=== PATIENT | male | born 1945 | race Caucasian/White ===

== ENCOUNTER → 2017-07-25 14:38 | Outpatient (CLI) | payer MEDICARE, OTHER, SELFPAY ==
--- NOTE | 2017-07-25 15:02 | EKG12_ITS ---
Test Reason : PREOP Blood Pressure : / mmHG Vent. Rate : 061 BPM Atrial Rate : 061 BPM P-R Int : 206 ms QRS Dur : 128 ms QT Int : 462 ms P-R-T Axes : 004 -43 036 degrees QTc Int : 465 ms Normal sinus rhythm Left axis deviation Non-specific intra-ventricular conduction block Abnormal ECG Confirmed by IMANI SEAMAN, CRISTOBAL ([id number]), editor house organ SYDNEE CARDONA ([id number] on 07/28/2017 12:48:57 PM Referred By: KALA Confirmed By:CRISTOBAL DIALLO MD
[2017-07-25 15:35] LABS: Hematocrit 46.6 % (40-54); Hemoglobin 15.5 g/dl (13.0-16.5); Mean Corp Hgb Conc 33.3 g/gl (32-36); Mean Corpuscular Hgb 31.5 pg (27.0-32.0); Mean Corpuscular Volume 94.7 fL (80-94); Mean Platelet Vol. 9.9 fl (6.2-12.0); Platelet Count 148 K/mm3 (150-450); RBC Distribution Width CV 13.5 % (11.6-14.6); RBC Distribution Width SD 46.4 fl (35.1-43.9); Red Blood Count 4.92 M/mm3 (4.6-6.2); White Blood Count 7.3 K/mm3 (4.4-11.0)
[2017-07-25 15:47] LABS: Hemoglobin A1c 6.1 % (4.2-6.3)
[2017-07-25 16:01] LABS: Anion Gap 5 (5-15); BUN 14 mg/dL (7-18); BUN/Creat Ratio 16.1 RATIO (10-20); Calcium,Total 8.7 mg/dL (8.5-10.1); Chloride 105 mmol/L (98-107); Creatinine, Serum 0.87 mg/dL (0.70-1.30); EST Glomerular Filtration Rate 92 mL/min (>60); Est Glom Filt Rate - Afr Amer 111 mL/min (>60); Glucose 121 mg/dL (74-106); Potassium 4.3 mmol/L (3.5-5.1); Sodium Level 137 mmol/L (136-145)
[2017-07-25 16:11] LABS: Scan Indicated on CBC? Y/N NO
== END ==
PROVIDERS: Family Provider Orthopaedic Surgery; PCP Orthopaedic Surgery; Visit Provider Orthopaedic Surgery
DX: Z01.818 Encounter for other preprocedural examination (principal); E11.9 Type 2 diabetes mellitus without complications
CPT/HCPCS: 36415; 80048; 83036; 85027; 93005

== ENCOUNTER 2017-10-26 08:56 | Emergency (ER) | payer MEDICARE, OTHER, SELFPAY ==
[2017-10-26 08:58] VITALS: BP 124/70; PULSE 78; RESP 17; TEMP 36.4; O2SAT 94; BMI 33.7
[2017-10-26 09:16] LABS: Bedside Glucose 186 mg/dL (70-110)
[2017-10-26 09:23] LABS: Mucous, Urine 0 SEEN /hpf (<or=2+)
[2017-10-26 09:25] LABS: Color, Urine Red (Yellow); Glucose, Dipstick Normal (Normal); Ketone-Dipstick 50 mg/dl (Negative); Leukocyte Esterase-Dipstick 500 /ul (Negative); Nitrite-Dipstick Negative (Negative); Occult Blood-Urine 250 /ul (Negative); Protein-Dipstick 100 mg/dl (Negative); Specific Gravity, Urine 1.025 (1.002-1.030); Urine Clarity Cloudy (Clear); Urine Urobilinogen Normal (Normal); Urine pH 6.5 (5.0 - 8.0)
[2017-10-26 09:26] LABS: Urine Bilirubin Dipstick 1 mg/dL (Negative)
[2017-10-26 09:39] LABS: Red Blood Cells-Urine > 100 SEEN /hpf (0-5); White Blood Cells >100 SEEN /hpf (0-5)
[2017-10-26 09:40] LABS: Bacteria 1+ /hpf (None Seen); Squamous Epithelial Cells - UA 5-10 SEEN /hpf (0-5)
[2017-10-26 10:07] LABS: Absolute Lymphocyte Count 0.59 X10^3/ul (0.83-4.51); Absolute Neutrophil Count 12.1 X10^3/uL (2.0-7.7); Basophil# 0.01 X10^3/uL; Basophil% 0.1 % (0-1); Eosinophil# 0.01 X10^3/uL; Eosinophils% 0.1 % (0-5); Hematocrit 41.7 % (40-54); Hemoglobin 13.9 g/dl (13.0-16.5); Lymphocyte # 0.59 X10^3/ul (4.0); Lymphocyte % 4.3 % (19-41); Mean Corp Hgb Conc 33.3 g/gl (32-36); Mean Corpuscular Volume 93.1 fL (80-94); Mean Platelet Vol. 9.6 fl (6.2-12.0); Monocyte# 1.01 X10^3/uL; Monocyte% 7.4 % (0-10); Neutrophil # 12.05 X10^3/uL (2.7-7.7); Neutrophil % 87.7 % (47-70); Platelet Count 150 K/mm3 (150-450); RBC Distribution Width CV 13.1 % (11.6-14.6); RBC Distribution Width SD 43.2 fl (35.1-43.9); Red Blood Count 4.48 M/mm3 (4.6-6.2); White Blood Count 13.7 K/mm3 (4.4-11.0)
[2017-10-26 10:14] LABS: Anion Gap 10 (5-15); BUN 17 mg/dL (7-18); BUN/Creat Ratio 21.3 RATIO (10-20); Calcium,Total 8.5 mg/dL (8.5-10.1); Chloride 101 mmol/L (98-107); Differential Indicated SCAN CRITERIA MET; EST Glomerular Filtration Rate 101 mL/min (>60); Est Glom Filt Rate - Afr Amer 123 mL/min (>60); Estimated Creatinine Clearance 92.96 ml/min; Glucose 170 mg/dL (74-106); POSITIVE COUNT NO; POSITIVE DIFFERENTIAL YES; POSITIVE MORPHOLOGY NO; Potassium 4.1 mmol/L (3.5-5.1); Sodium Level 136 mmol/L (136-145)
[2017-10-26] MEDS: Ceftriaxone 1 GM/50 ML BAG IV (10:26)
[2017-10-26 10:28] LABS: Differential Comment SCANNED
[2017-10-26 11:12] VITALS: BP 134/69; PULSE 71; RESP 19; O2SAT 96
[2017-10-26 12:14] VITALS: BP 140/63; PULSE 70; RESP 16; O2SAT 95
--- NOTE | 2017-10-26 17:24 | ED.DCSUM_ITS ---
History of Present Illness Chief Complaint: Complaint Informant: Patient Onset: Yesterday Context: Gradual Onset Timing: Continuous - but w/ urination only Quality: burning w/ urination Location: urethral Current Severity: Moderate Maximum Severity: Moderate Worsened by: urinating Relieved by: nothing Associated Symptoms: mild hematuria w/o clots or retention. fevers/chills/ malaise. Narrative: No abdominal or back pain. No shortness of breath. No presyncope or syncope. No significant history of kidney stones or urine infections before. - Past Medical History (1) Afib Status: Chronic (2) HTN (hypertension) Status: Chronic Past Medical History - Allergies and Home Meds Allergies/Adverse Reactions: Allergies doxycycline [From Vibramycin] Allergy (Verified 10/26/17 08:58) Rash fenofibrate [From Tricor] Allergy (Verified 10/26/17 08:58) Unknown lisinopril Allergy (Verified 10/26/17 08:58) Other COUGH Primary Care Physician: [facility],[place] [Primary Care Provider] - Lives: Spouse/ Significant Other Smoking Status: Never smoker Review of Systems All systems negative except as indicated General: Reports: Chills, Fever, Malaise Gastrointestinal: Denies: Abdominal pain, Nausea, Vomiting Genitourinary: Reports: Dysuria, Hematuria, Frequency Musculoskeletal: Denies: Back pain Physical Exam Vital Signs/Narrative: Vital Signs Temp Pulse Resp BP Pulse Ox 10/26/17 11:12 71 19 H 134/69 H 96 10/26/17 08:58 97.6 F L 78 17 124/70 H 94 General: Well nourished, Well developed Head: Normocephalic, Atraumatic Eyes: Perrl, EOMI ENT: Moist mucous membranes, No rhinorrhea Neck: Supple, Nontender Cardiovascular: Regular rate, Regular rhythm, No murmurs Respiratory: No distress, CTA bilaterally, Chest nontender Abdomen: Soft, Nontender, Nondistended, Normal bowel sounds Back: Nontender, Normal Inspection Extremities: Nontender, No edema Skin: Normal color, No rash Neurological: Alert, Oriented x3, Cranial nerves II-XII grossly intact, Normal Strength, Normal Sensation Psychological: Normal affect Diagnostic/Tx/Re-eval Laboratory Results 10/26/17 10/26/17 10/26/17 Range/Units 09:10 09:11 09:30 WBC 13.7 H (4.4-11.0) K/mm3 RBC 4.48 L (4.6-6.2) M/mm3 Hgb 13.9 (13.0-16.5) g/dl Hct 41.7 (40-54) % MCV 93.1 (80-94) fL MCH 31.0 (27.0-32.0) pg MCHC 33.3 (32-36) g/gl RDW 13.1 (11.6-14.6) % RDW Differential 43.2 (35.1-43.9) fl Plt Count 150 (150-450) K/mm3 MPV 9.6 (6.2-12.0) fl Immature Gran % (Auto) 0.400 (0.0-0.9) % Neut % (Auto) 87.7 H (47-70) % Lymph % (Auto) 4.3 L (19-41) % [place] % (Auto) 7.4 (0-10) % Eos % (Auto) 0.1 (0-5) % Baso % (Auto) 0.1 (0-1) % Absolute Neuts (auto) 12.1 H (2.0-7.7) X10^3/uL Absolute Lymphs (auto) 0.59 L (0.83-4.51) X10^3/ul Total Counted Not Reportable Differential Comment SCANNED Sodium (136-145) mmol/L Potassium (3.5-5.1) mmol/L Chloride (98-107) mmol/L Carbon Dioxide (21.0-32.0) mmol/L Anion Gap (5-15) BUN (7-18) mg/dL Creatinine (0.70-1.30) mg/dL Estim Creat Clear Calc ml/min Est GFR (MDRD) Af Amer (>60) mL/min Est GFR (MDRD) Non-Af (>60) mL/min BUN/Creatinine Ratio (10-20) RATIO Glucose (74-106) mg/dL Calcium (8.5-10.1) mg/dL Urine Color Red (Yellow) Urine Clarity Cloudy (Clear) Urine pH 6.5 (5.0 - 8.0) Ur Specific [place] 1.025 (1.002-1.030) Urine Protein 100 H (Negative) mg/dl Urine Glucose (UA) Normal (Normal) mg/dl Urine Ketones 50 H (Negative) mg/dl Urine Occult Blood 250 H (Negative) /ul Urine Nitrite Negative (Negative) Urine Bilirubin 1 H (Negative) mg/dL Urine Urobilinogen Normal (Normal) mg/dl Ur Leukocyte Esterase 500 H (Negative) /ul Urine RBC > 100 SEEN (0-5) /hpf Urine WBC >100 SEEN (0-5) /hpf Ur Squamous Epith Cells 5-10 SEEN (0-5) /hpf Urine Bacteria 1+ (None Seen) /hpf Urine Mucus 0 SEEN (<or=2+) /hpf POC Glucose 186 H (70-110) mg/dL 10/26/17 Range/Units 09:30 WBC (4.4-11.0) K/mm3 RBC (4.6-6.2) M/mm3 Hgb (13.0-16.5) g/dl Hct (40-54) % MCV (80-94) fL MCH (27.0-32.0) pg MCHC (32-36) g/gl RDW (11.6-14.6) % RDW Differential (35.1-43.9) fl Plt Count (150-450) K/mm3 MPV (6.2-12.0) fl Immature Gran % (Auto) (0.0-0.9) % Neut % (Auto) (47-70) % Lymph % (Auto) (19-41) % [place] % (Auto) (0-10) % Eos % (Auto) (0-5) % Baso % (Auto) (0-1) % Absolute Neuts (auto) (2.0-7.7) X10^3/uL Absolute Lymphs (auto) (0.83-4.51) X10^3/ul Total Counted Differential Comment Sodium 136 (136-145) mmol/L Potassium 4.1 (3.5-5.1) mmol/L Chloride 101 (98-107) mmol/L Carbon Dioxide 25.0 (21.0-32.0) mmol/L Anion Gap 10 (5-15) BUN 17 (7-18) mg/dL Creatinine 0.80 (0.70-1.30) mg/dL Estim Creat Clear Calc 92.96 ml/min Est GFR (MDRD) Af Amer 123 (>60) mL/min Est GFR (MDRD) Non-Af 101 (>60) mL/min BUN/Creatinine Ratio 21.3 H (10-20) RATIO Glucose 170 H (74-106) mg/dL Calcium 8.5 (8.5-10.1) mg/dL Urine Color (Yellow) Urine Clarity (Clear) Urine pH (5.0 - 8.0) Ur Specific [place] (1.002-1.030) Urine Protein (Negative) mg/dl Urine Glucose (UA) (Normal) mg/dl Urine Ketones (Negative) mg/dl Urine Occult Blood (Negative) /ul Urine Nitrite (Negative) Urine Bilirubin (Negative) mg/dL Urine Urobilinogen (Normal) mg/dl Ur Leukocyte Esterase (Negative) /ul Urine RBC (0-5) /hpf Urine WBC (0-5) /hpf Ur Squamous Epith Cells (0-5) /hpf Urine Bacteria (None Seen) /hpf Urine Mucus (<or=2+) /hpf POC Glucose (70-110) mg/dL - Medical Decision Making Labs show a leukocytosis with leftward shift, however no gap metabolic acidosis. His renal function is normal. His urine shows significant signs of infection. He was given an IV dose of Rocephin. On reevaluation he is already feeling better and he wants to go home. Admission offered and he declines. Will place on antibiotics and have him follow-up with urology since he does not have a local physician. He is on Xarelto, I recommend that he discontinue it until his symptoms improve, and as long as the bleeding is resolved, can then restart it. Encouraged to return for worsening symptoms or urinary retention. He states that he was having symptoms when he went into A. fib and he has not had that in a long time, but he felt them 1 time a year or 2 ago so he and his doctor agreed that it would be okay if he restarted it. He is on 20 once a day , so we will discontinuing it now and restarting it later should be low risk for him. ED Disposition - Plan for ED Patient: Disposition: Home or Assisted Living Chief Complaint: Complaint Diagnosis: Cystitis, acute hemorrhagic Instructions: ED UTI Cystitis Male Prescriptions: Cephalexin [Keflex] 500 mg PO 4X/DAY #28 cap Referrals: Etienne Moore MD [STAFF PHYSICIAN] - 5-7 Days Additional Instructions: Discontinue your Xarelto temporarily, until your symptoms are resolved, and he may restart it as long as you do not have urinary bleeding anymore.
== END 2017-10-26 12:17 | disposition home or self-care (01) ==
PROVIDERS: Emergency Provider Emergency Medicine
DX: N30.01 Acute cystitis with hematuria (principal); B96.89 Other specified bacterial agents as the cause of diseases classified elsewhere; I48.2 Chronic atrial fibrillation; I10 Essential (primary) hypertension; Z79.899 Other long term (current) drug therapy
CPT/HCPCS: 80048; 81001; 82962; 85025; 87086; 87088; 87186; 96365; 99283; J7030; A4216

== ENCOUNTER → 2017-11-02 16:01 | Outpatient (CLI) | payer MEDICARE, OTHER, SELFPAY | PROVIDERS: Visit Provider Nurse Practitioner Adult Health | DX: R31.9 Hematuria, unspecified (principal); R30.0 Dysuria | CPT/HCPCS: 87086 ==

== ENCOUNTER → 2017-11-09 16:56 | Outpatient (CLI) | payer MEDICARE, OTHER, SELFPAY | PROVIDERS: Visit Provider Urology | DX: R82.99 Other abnormal findings in urine (principal) | CPT/HCPCS: 87086; 87088; 87186 ==

== ENCOUNTER → 2017-11-13 16:16 | Outpatient (CLI) | payer MEDICARE, OTHER, SELFPAY ==
[2017-11-13 18:52] LABS: PSA,Total - Annual Screen 3.24 ng/mL (0.00-4.00)
== END ==
PROVIDERS: Visit Provider Urology
DX: Z12.5 Encounter for screening for malignant neoplasm of prostate (principal)
CPT/HCPCS: 36415; 84153; G0103

== ENCOUNTER 2019-07-26 01:55 | Emergency (ER) | payer MEDICARE, OTHER, SELFPAY ==
[2019-07-26 01:57] VITALS: BP 148/89; PULSE 83; RESP 20; TEMP 36.5; O2SAT 96; BMI 34.2
--- NOTE | 2019-07-26 02:02 | ED.VIS.GEN ---
History of Present Illness Chief Complaint: Complaint Informant: Patient Onset: Days Context: Gradual Onset Timing: Continuous Current Severity: Moderate Maximum Severity: Moderate Narrative: The patient is a 73-year-old male with medical history significant for Parkinson disorder and prior atrial fibrillation the presents to the emergency department with dysuria and hematuria. Patient states over the past 3 or 4 days, he has had increased frequency of urine. He states over the past 4 or 5 times that he is urinated, he is noticed some scant blood in it. He feels like he cannot empty his bladder and has persistent urgency to go. He denies any fevers, chills, back pain, or other systemic symptoms. He states he did have a urinary tract infection about 2 years ago which resolved quickly with antibiotics. He is otherwise been in his normal state of health. Prior similar symptoms: Yes Recent Illness/Hospitalization: No Past Medical History - Allergies and Home Meds Allergies/Adverse Reactions: Allergies doxycycline [From Vibramycin] Allergy (Verified 10/26/17 08:58) Rash fenofibrate [From Tricor] Allergy (Verified 10/26/17 08:58) Unknown lisinopril Allergy (Verified 10/26/17 08:58) Other COUGH Primary Care Physician: [facility] [Primary Care Provider] - Prior records reviewed: Yes Past Medical History: - - A. fib, Parkinson's Surgical History: noncontributory Smoking Status: Never smoker Review of Systems General: Denies: Chills, Fever, Sweats Eyes: Denies: Visual changes - bilaterally, Diplopia ENT: Denies: Rhinorrhea, Sore throat Cardiovascular: Denies: Chest pain, Palpitations Respiratory: Denies: Dyspnea, Cough, Dyspnea on exertion Gastrointestinal: Denies: Abdominal pain, Nausea, Vomiting, Diarrhea, Melena, Hematochezia Genitourinary: Reports: Dysuria, Hematuria, Frequency Musculoskeletal: Denies: Back pain, Extremity Pain Skin: Denies: Rash, Wounds Neurological: Denies: Headache, Weakness, Numbness Physical Exam Inital Vital Signs reviewed: Yes General: Well nourished, Well developed, No Acute Distress Head: Normocephalic, Atraumatic Eyes: Perrl, EOMI ENT: Moist mucous membranes, No rhinorrhea Neck: Supple, Nontender Cardiovascular: Regular rate, Regular rhythm, No murmurs Respiratory: No distress, CTA bilaterally, Chest nontender Abdomen: Soft, Nontender, Nondistended, Normal bowel sounds Back: Nontender, Normal Inspection Extremities: Nontender, No edema Skin: Normal color, No rash Neurological: Alert, Oriented x3, Cranial nerves II-XII grossly intact, Normal Strength, Normal Sensation Psychological: Normal affect, Normal Mood Diagnostic/Tx/Re-eval Abnormal Lab Results 07/26/19 07/26/19 07/26/19 02:05 02:25 02:25 WBC 7.7 RBC 5.00 Hgb 15.9 Hct 46.9 MCV 93.8 MCH 31.8 MCHC 33.9 RDW Std Deviation 44.4 H RDW Coeff of Rosario 12.9 Plt Count 139 L MPV 9.4 Immature Gran % (Auto) 0.300 Neut % (Auto) 79.1 H Lymph % (Auto) 9.7 L [place] % (Auto) 10.1 H Eos % (Auto) 0.5 Baso % (Auto) 0.3 Absolute Neuts (auto) 6.1 Absolute Lymphs (auto) 0.75 L Nucleated RBC % 0 Sodium 136 Potassium 4.1 Chloride 105 Carbon Dioxide 24.0 Anion Gap 7 BUN 15 Creatinine 0.94 Estim Creat Clear Calc 80.28 Est GFR (MDRD) Af Amer 102 Est GFR (MDRD) Non-Af 84 BUN/Creatinine Ratio 16.0 Glucose 174 H Calcium 8.8 Urine Color Red Urine Clarity Cloudy Urine pH 6.5 Ur Specific [place] 1.015 Urine Protein 500 H Urine Glucose (UA) Normal Urine Ketones 5 H Urine Occult Blood 250 H Urine Nitrite Negative Urine Bilirubin Negative Urine Urobilinogen Normal Ur Leukocyte Esterase 500 H - Medical Decision Making The patient symptoms do seem consistent with hemorrhagic cystitis. He is on anticoagulants for history of A. fib, but has been in sinus for some time. Screening labs are obtained. Renal function is normal. Blood counts are unremarkable. Urine does show evidence of infection and culture was added. The patient was given IV Rocephin. I did review his prior culture results and he has been sensitive to Bactrim. I am going to have him hold his anticoagulants for 48 hours and continue antibiotic therapy. He will follow-up with urology or return here if he has any symptoms of obstruction, fever, or other constellation of symptoms. He is comfortable with this plan of care. Impression 1. Hemorrhagic cystitis ED Disposition - Plan for ED Patient: Instructions: ED CYSTITIS Male Adult Prescriptions: Smz/Tmp Ds [Bactrim Ds] 1 tab PO BID #14 tab Prescription Printed Referrals: Etienne Moore MD [STAFF PHYSICIAN] - 1-2 Days if not improving Additional Instructions: Please do not take your Xarelto today or tomorrow.
[2019-07-26 02:24] LABS: Bacteria 0 SEEN /hpf (None Seen); Mucous, Urine 0 SEEN /hpf (<or=2+)
[2019-07-26] MEDS: Ceftriaxone 1 GM/50 ML BAG IV (02:26)
[2019-07-26 02:34] LABS: Absolute Lymphocyte Count 0.75 X10^3/uL (0.83-4.51); Absolute Neutrophil Count 6.1 X10^3/uL (2.0-7.7); Basophil# 0.02 X10^3/uL; Basophil% 0.3 % (0-1); Eosinophil# 0.04 X10^3/uL; Eosinophils% 0.5 % (0-5); Hematocrit 46.9 % (40-54); Hemoglobin 15.9 g/dL (13.0-16.5); Lymphocyte # 0.75 X10^3/ul (4.0); Lymphocyte % 9.7 % (19-41); Mean Corp Hgb Conc 33.9 g/dL (32-36); Mean Corpuscular Hgb 31.8 pg (27.0-32.0); Mean Corpuscular Volume 93.8 fL (80-94); Mean Platelet Vol. 9.4 fl (6.2-12.0); Monocyte# 0.78 X10^3/uL; Monocyte% 10.1 % (0-10); NRBC Flagged by Analyzer 0 % (0-5); Neutrophil % 79.1 % (47-70); Platelet Count 139 K/mm3 (150-450); RBC Distribution Width CV 12.9 % (11.6-14.6); RBC Distribution Width SD 44.4 fl (35.1-43.9); White Blood Count 7.7 K/mm3 (4.4-11.0)
[2019-07-26 02:36] VITALS: BP 126/82; PULSE 76; RESP 18; O2SAT 93
[2019-07-26 02:40] LABS: Color, Urine Red (Yellow); Glucose, Dipstick Normal (Normal); Ketone-Dipstick 5 mg/dl (Negative); Leukocyte Esterase-Dipstick 500 /ul (Negative); Nitrite-Dipstick Negative (Negative); Occult Blood-Urine 250 /ul (Negative); Protein-Dipstick 500 mg/dl (Negative); Specific Gravity, Urine 1.015 (1.002-1.030); Urine Bilirubin Dipstick Negative (Negative); Urine Clarity Cloudy (Clear); Urine Urobilinogen Normal (Normal); Urine pH 6.5 (5.0 - 8.0)
[2019-07-26 02:44] LABS: Anion Gap 7 (5-15); BUN 15 mg/dL (7-18); Calcium,Total 8.8 mg/dL (8.5-10.1); Chloride 105 mmol/L (98-107); Creatinine, Serum 0.94 mg/dL (0.70-1.30); EST Glomerular Filtration Rate 84 mL/min (>60); Est Glom Filt Rate - Afr Amer 102 mL/min (>60); Estimated Creatinine Clearance 80.28 ml/min; Glucose 174 mg/dL (74-106); Potassium 4.1 mmol/L (3.5-5.1); Sodium Level 136 mmol/L (136-145)
[2019-07-26 02:51] LABS: Red Blood Cells-Urine > 100 SEEN /hpf (0-5); Squamous Epithelial Cells - UA 5-10 SEEN /hpf (0-5); White Blood Cells >100 SEEN /hpf (0-5)
[2019-07-26 03:04] VITALS: BP 134/81; PULSE 84; RESP 18; O2SAT 98
== END 2019-07-26 03:21 | disposition home or self-care (01) ==
LOC: ED 02:13
PROVIDERS: Emergency Provider Emergency Medicine
DX: N30.90 Cystitis, unspecified without hematuria (principal); I48.91 Unspecified atrial fibrillation
CPT/HCPCS: 80048; 81001; 85025; 87086; 87088; 96365; 99283; J7030

== ENCOUNTER 2023-07-20 19:06 | Emergency (ER) | payer OTHER, SELFPAY ==
[2023-07-20 19:06] VITALS: BP 166/92; PULSE 89; RESP 18; TEMP 36.7; O2SAT 95; BMI 34.6
--- NOTE | 2023-07-20 19:27 | EKG12_ITS ---
Test Reason : ABD. PAIN Blood Pressure : / mmHG Vent. Rate : 085 BPM Atrial Rate : 085 BPM P-R Int : 200 ms QRS Dur : 116 ms QT Int : 410 ms P-R-T Axes : 079 -34 027 degrees QTc Int : 487 ms Normal sinus rhythm Left axis deviation Prolonged QT Abnormal ECG When compared with ECG of 25-JUL-2017 15:06, No significant change was found Confirmed by Leif Pokl ([id number]), videotape editor MATT ARMSTRONG ([id number]) on 07/24/2023 1:01:24 PM Referred By: KANDICE Confirmed By:Leif Polk
--- NOTE | 2023-07-20 19:27 | EDS_ITS ---
HPI <MICHEAL Iglesias - Last Filed: 07/20/23 20:47> History of Present Illness Chief Complaint: Abd Pain Narrative Narrative: 77-year-old male with PMH of HTN, A-fib, DM2 states he woke up around 9 AM with epigastric abdominal pain and then around 11 AM he had sausage biscuits and gravy at [employer] and the pain intensified. He does not recall what he had for dinner last night. The pain has been constant all day but just decreased in the last hour. He had nausea and dry heaving but no emesis. He has normal urination. He states he has hard daily bowel movements and takes Metamucil and had no change with today's BM. No melena or hematochezia. He states he had colon cancer with about a foot of his colon resected 20 years ago and was told the entire thing was taken out so he did not require any further treatment. He [place]oscop[place] 6 [place] the [place] a [place] and then switch to getting them in [place]. He states he had a normal colonoscopy within the last year. He denies smoking or drinking alcohol. PFSH <MICHEAL Iglesias - Last Filed: 07/20/23 20:47> [facility] Home Medications amlodipine 2.5 mg tablet 2.5 mg PO DAILY 10/26/17 [History Last Taken Unknown] flecainide 150 mg tablet 150 mg PO BID 10/26/17 [History Last Taken Unknown] metoprolol tartrate 50 mg tablet 50 mg PO BID 10/26/17 [History Last Taken Unknown] rivaroxaban 20 mg tablet (Xarelto) 20 mg PO QHS 10/26/17 [History Last Taken Unknown] sulfamethoxazole 800 mg-trimethoprim 160 mg tablet 1 tab PO BID #14 tabs 07/26/19 [Rx Last Taken Unknown] Allergy/AdvReac Type Severity Reaction Status Date / Time doxycycline [From Vibramycin] Allergy Rash Verified 07/20/23 19:09 fenofibrate [From Tricor] Allergy Unknown Verified 07/20/23 19:09 lisinopril Allergy Other Verified 07/20/23 19:09 Social History Smoking Status: Never smoker ROS <MICHEAL Iglesias - Last Filed: 07/20/23 20:47> ROS ED ROS Narrative Constitutional: Negative for fever, chills, malaise. CVS: Negative for chest pain. Respiratory: Negative for shortness of breath. GI: Positive for abdominal pain, nausea, vomiting, constipation. Negative for melena, hematochezia. : Negative for dysuria, hematuria or frequency. EXAM <MICHEAL Iglesias - Last Filed: 07/20/23 20:47> Physical Exam Narrative Exam Narrative: CONST: Patient sitting in no acute distress. EYES: Normal inspection. NECK: Normal inspection. RESP: No respiratory distress, CTAB. CVS: Regular rate and rhythm, no murmur, no gallop. ABD: Soft and nontender, no guarding or rebound, nondistended, no hepatosplenomegaly. SKIN: Color normal, no rash, warm, dry, intact. EXTREMITIES: Normal appearance, no pedal edema. NEURO: Oriented x4. PSYCH: Normal affect. Const Vital Signs: 07/20/23 19:06 07/20/23 20:06 Temperature 98.0 F 97.6 F L Temperature Source Temporal Pulse Rate 89 87 Respiratory Rate 18 16 Blood Pressure 166/92 H 136/78 H Blood Pressure Mean 116 97 Pulse Ox 95 98 Oxygen Delivery Method Room Air <Dr. James Contreras MD - Last Filed: 07/20/23 20:51> Physical Exam Const Vital Signs: 07/20/23 19:06 07/20/23 20:06 Temperature 98.0 F 97.6 F L Temperature Source Temporal Pulse Rate 89 87 Respiratory Rate 18 16 Blood Pressure 166/92 H 136/78 H Blood Pressure Mean 116 97 Pulse Ox 95 98 Oxygen Delivery Method Room Air MDM <MICHEAL Iglesias - Last Filed: 07/20/23 20:47> [facility] Narrative Medical decision making narrative: History gathered from: Patient and spouse Differential: GERD, pancreatitis, biliary disease Patient had epigastric pain upon awakening that worsened after eating with associated nausea. Pain has mostly resolved upon arrival. He is awake alert with stable vital signs. Normal cardiopulmonary exam. Abdomen is soft, nontender, nondistended. Labs show normal white count of 7.4. Hemoglobin is 12.1 and there is no acute comparison as his last blood work was over 4 years ago. He denies melena or hematochezia. BMP notable for glucose of 227 consistent with his diabetes. Normal LFTs and lipase. Patient's pain had resolved here and serial exams are benign and he declined analgesia. I discussed differential includes GERD and gallbladder disease and discussed dietary changes and follow-up with his primary care doctor. If symptoms worsen he should return for reevaluation. He was discharged in stable condition. I have personally performed a face to face assessment of the patient and have reviewed the GABBIE Note. I performed a substantive portion of the visit including all aspects of the following. My yen findings include: History is remarkable for discomfort in the right and left upper quadrant upon awakening this morning. He does not recall what he ate for dinner. States an aching pain. It did not radiate through to his back. He did have nausea without vomiting diarrhea. He denies chest discomfort, dyspnea or dyspnea on exertion. [place]ys orthopnea or PND. He is on an anticoagulant. He does have history of atrial fibrillation. Patient denies history of liver or gallbladder problems. He does have intolerance to greasy and fried foods. His pain was worse after having biscuits with gravy and sausage at 10 AM. He denies black or maroon-colored stool. Exam is remarkable for elevated blood pressure. HEENT is unremarkable. Lungs are clear auscultation. Breath sounds are symmetric. Heart is irregularly irregular. There is no murmur. Abdomen slightly distended and tympanitic. There is tenderness in the left and right upper quadrant. Negative clinical Bell sign. No palp muscle mass or abdominal bruit. There is no guarding or peritoneal findings. There is no CVA tenderness. There is no evidence of ventral hernia. Medical Decision Making differential diagnosis is abdominal pain unknown etiology, cholelithiasis with biliary colic, acute cholecystitis, gallstone pancreatitis may represent atypical presentation for cardiac disease. Other additions or changes: [None] Lab Data Attestation: I reviewed the patient's lab results. Labs: Laboratory Results - last 24 hr 07/20/23 07/20/23 19:53 20:00 WBC 7.4 RBC 4.28 L Hgb 12.1 L Hct 38.0 L MCV 88.8 MCH 28.3 MCHC 31.8 L RDW Std Deviation 44.4 H RDW Coeff of Rosario 13.7 Plt Count 169 MPV 9.5 Immature Gran % (Auto) 0.300 Neut % (Auto) 84.5 H Lymph % (Auto) 8.9 L [place] % (Auto) 5.5 Eos % (Auto) 0.5 Baso % (Auto) 0.3 Absolute Neuts (auto) 6.3 Absolute Lymphs (auto) 0.66 L Nucleated RBC % 0 Sodium 137 Potassium 3.6 Chloride 103 Carbon Dioxide 27.0 Anion Gap 7 BUN 16 Creatinine 0.77 Estim Creat Clear Calc 103.20 Est GFR (MDRD) Af Amer 127 Est GFR (MDRD) Non-Af 105 BUN/Creatinine Ratio 20.9 H Glucose 227 H Calcium 8.5 Total Bilirubin 0.40 AST 20 ALT 13 L Alkaline Phosphatase 98 Troponin I High Sens 5 Total Protein 6.7 Albumin 3.4 Globulin 3.3 Albumin/Globulin Ratio 1.0 Lipase 29 Urine Color Yellow Urine Clarity Sl. Cloudy Urine pH 8.0 Ur Specific [place] 1.010 Urine Protein 30 H Urine Glucose (UA) Normal Urine Ketones 5 H Urine Occult Blood Negative Urine Nitrite Negative Urine Bilirubin Negative Urine Urobilinogen Normal Ur Leukocyte Esterase Negative Urine RBC 0 SEEN Urine WBC 0 SEEN Ur Squamous Epith Cells 0 SEEN Amorphous Sediment 1+ Urine Bacteria RARE Urine Mucus 0 SEEN EKG Initial EKG: Attestation: I personally reviewed and interpreted this EKG as follows: Comments: Normal sinus rhythm 85 bpm Left axis deviation Prolonged QT C at 407 ms <Dr. James Contreras MD - Last Filed: 07/20/23 20:51> [facility] Narrative Medical decision making narrative: I have personally performed a face to face assessment of the patient and have reviewed the GABBIE Note. I performed a substantive portion of the visit including all aspects of the following. My yen findings include: History is remarkable for discomfort in the right and left upper quadrant upon awakening this morning. He does not recall what he ate for dinner. States an aching pain. It did not radiate through to his back. He did have nausea without vomiting diarrhea. He denies chest discomfort, dyspnea or dyspnea on exertion. Nuys orthopnea or PND. He is on an anticoagulant. He does have history of atrial fibrillation. Patient denies history of liver or gallbladder problems. He does have intolerance to greasy and fried foods. His pain was worse after having biscuits with gravy and sausage at 10 AM. He denies black or maroon-colored stool. Exam is remarkable for elevated blood pressure. HEENT is unremarkable. Lungs are clear auscultation. Breath sounds are symmetric. Heart is irregularly irregular. There is no murmur. Abdomen slightly distended and tympanitic. There is tenderness in the left and right upper quadrant. Negative clinical Bell sign. No palp muscle mass or abdominal bruit. There is no guarding or peritoneal findings. There is no CVA tenderness. There is no evidence of v entral hernia. Medical Decision Making differential diagnosis is abdominal pain unknown etiology, cholelithiasis with biliary colic, acute cholecystitis, gallstone pancreatitis may represent atypical presentation for cardiac disease. Other additions or changes: [None] Lab Data Lab results narrative: CBC reveals mild anemia with normal indices. Comprehensive metabolic panel is marked for glucose of 227 with a normal CO2 anion gap. Renal function is normal. UA is unremarkable. There is small ketones noted. Labs: Laboratory Results - last 24 hr 07/20/23 07/20/23 19:53 20:00 WBC 7.4 RBC 4.28 L Hgb 12.1 L Hct 38.0 L MCV 88.8 MCH 28.3 MCHC 31.8 L RDW Std Deviation 44.4 H RDW Coeff of Rosario 13.7 Plt Count 169 MPV 9.5 Immature Gran % (Auto) 0.300 Neut % (Auto) 84.5 H Lymph % (Auto) 8.9 L [place] % (Auto) 5.5 Eos % (Auto) 0.5 Baso % (Auto) 0.3 Absolute Neuts (auto) 6.3 Absolute Lymphs (auto) 0.66 L Nucleated RBC % 0 Sodium 137 Potassium 3.6 Chloride 103 Carbon Dioxide 27.0 Anion Gap 7 BUN 16 Creatinine 0.77 Estim Creat Clear Calc 103.20 Est GFR (MDRD) Af Amer 127 Est GFR (MDRD) Non-Af 105 BUN/Creatinine Ratio 20.9 H Glucose 227 H Calcium 8.5 Total Bilirubin 0.40 AST 20 ALT 13 L Alkaline Phosphatase 98 Troponin I High Sens 5 Total Protein 6.7 Albumin 3.4 Globulin 3.3 Albumin/Globulin Ratio 1.0 Lipase 29 Urine Color Yellow Urine Clarity Sl. Cloudy Urine pH 8.0 Ur Specific [place] 1.010 Urine Protein 30 H Urine Glucose (UA) Normal Urine Ketones 5 H Urine Occult Blood Negative Urine Nitrite Negative Urine Bilirubin Negative Urine Urobilinogen Normal Ur Leukocyte Esterase Negative Urine RBC 0 SEEN Urine WBC 0 SEEN Ur Squamous Epith Cells 0 SEEN Amorphous Sediment 1+ Urine Bacteria RARE Urine Mucus 0 SEEN Discharge Plan Triage Chief Complaint: Abd Pain ED Midlevel Provider: Laurence Nava ED Provider: James Contreras Dx/Rx/DC Orders Clinical Impression: Abdominal pain, epigastric, Afib, HTN (hypertension), Ketosis Instructions: ED Epigastric Pain Uncertain Cause Prescriptions: No Action flecainide 150 MG tablet 150 mg PO BID amlodipine 2.5 MG tablet 2.5 mg PO DAILY metoprolol tartrate 50 MG tablet 50 mg PO BID rivaroxaban [Xarelto] 20 MG tablet 20 mg PO QHS sulfamethoxazole-trimethoprim 1 TABLET tablet 1 tab PO BID Qty: 14 0RF [facility] [facility] [Primary [facility] Provider] - Activity Restrictions/Additional Instructions: Screening labs are normal other than mild anemia, blood sugar of 227. I recommend avoiding fried or fatty foods and following up with your primary care doctor. If your symptoms worsen return to the ER. Disposition Disposition: Home, Self Care Discharge Date/Time: 07/20/23 20:47
[2023-07-20 20:06] VITALS: BP 136/78; PULSE 87; RESP 16; TEMP 36.4; O2SAT 98
[2023-07-20 20:07] LABS: Absolute Lymphocyte Count 0.66 X10^3/uL (0.83-4.51); Absolute Neutrophil Count 6.3 X10^3/uL (2.0-7.7); Basophil# 0.02 X10^3/uL; Basophil% 0.3 % (0-1); Eosinophil# 0.04 X10^3/uL; Eosinophils% 0.5 % (0-5); Hemoglobin 12.1 g/dL (13.0-16.5); Lymphocyte # 0.66 X10^3/ul (0.83-4.51); Lymphocyte % 8.9 % (19-41); Mean Corp Hgb Conc 31.8 g/dL (32-36); Mean Corpuscular Hgb 28.3 pg (27.0-32.0); Mean Corpuscular Volume 88.8 fL (80-94); Mean Platelet Vol. 9.5 fl (6.2-12.0); Monocyte# 0.41 X10^3/uL; Monocyte% 5.5 % (0-10); NRBC Flagged by Analyzer 0 % (0-5); Neutrophil # 6.29 X10^3/uL (2.7-7.7); Neutrophil % 84.5 % (47-70); Platelet Count 169 K/mm3 (150-450); RBC Distribution Width CV 13.7 % (11.6-14.6); RBC Distribution Width SD 44.4 fl (35.1-43.9); Red Blood Count 4.28 M/mm3 (4.6-6.2); White Blood Count 7.4 K/mm3 (4.4-11.0)
[2023-07-20 20:08] LABS: Mucous, Urine 0 SEEN /hpf (<or=2+); Red Blood Cells-Urine 0 SEEN /hpf (0-5); Squamous Epithelial Cells - UA 0 SEEN /hpf (0-5); White Blood Cells 0 SEEN /hpf (0-5)
[2023-07-20 20:17] LABS: Color, Urine Yellow (Yellow); Glucose, Dipstick Normal (Normal); Ketone-Dipstick 5 mg/dl (Negative); Leukocyte Esterase-Dipstick Negative /ul (Negative); Nitrite-Dipstick Negative (Negative); Occult Blood-Urine Negative /ul (Negative); Protein-Dipstick 30 mg/dl (Negative); Urine Bilirubin Dipstick Negative (Negative); Urine Clarity Sl. Cloudy (Clear); Urine Urobilinogen Normal (Normal)
[2023-07-20 20:30] LABS: AST(SGOT) 20 U/L (15-37); Alanine Aminotransfer ALT/SGPT 13 U/L (16-61); Albumin, Serum 3.4 g/dL (3.2-5.0); Alkaline Phosphatase 98 U/L (45-117); Anion Gap 7 (5-15); BUN 16 mg/dL (7-18); BUN/Creat Ratio 20.9 RATIO (10-20); Calcium,Total 8.5 mg/dL (8.5-10.1); Chloride 103 mmol/L (98-107); Creatinine, Serum 0.77 mg/dL (0.70-1.30); EST Glomerular Filtration Rate 105 mL/min (>60); Est Glom Filt Rate - Afr Amer 127 mL/min (>60); Globulin 3.3 g/dL (2.2-4.2); Glucose 227 mg/dL (74-106); Lipase 29 U/L (13-75); Potassium 3.6 mmol/L (3.5-5.1); Protein, Total 6.7 g/dL (6.4-8.2); Sodium Level 137 mmol/L (136-145); Troponin-I HS 5 pg/mL (3.0-78.0)
[2023-07-20 20:42] LABS: Amorphous Sediment 1+; Bacteria RARE /hpf (None Seen)
== END 2023-07-20 20:47 | disposition home or self-care (01) ==
PROVIDERS: Physician Assistant; Emergency Provider Emergency Medicine; Visit Provider Emergency Medicine
DX: R10.13 Epigastric pain (principal); E88.89 Other specified metabolic disorders; I48.91 Unspecified atrial fibrillation; E11.9 Type 2 diabetes mellitus without complications; I10 Essential (primary) hypertension
CPT/HCPCS: 80053; 81001; 83690; 84484; 85025; 93005; 99283; A4216

== ENCOUNTER 2024-04-19 14:52 | Emergency (ER) | payer OTHER, SELFPAY ==
[2024-04-19 14:53] VITALS: BP 169/79; PULSE 69; RESP 16; TEMP 36.4; O2SAT 99; BMI 31.6
--- NOTE | 2024-04-19 15:07 | EX.ED.GENINJ ---
HPI History of Present Illness Chief Complaint: Nausea/Vomiting [facility] Medical History (Updated 04/19/24 @ 15:21 by Stephanie Hurtado) Neuropathy Parkinsons disease Home Medications ?Medication ?Instructions ?Recorded ?Last Taken ?Type flecainide 150 mg tablet 150 mg PO BID 10/26/17 Unknown History rivaroxaban 20 mg tablet (Xarelto) 20 mg PO QHS 10/26/17 Unknown History ondansetron 4 mg disintegrating 4 mg PO Q8H PRN PRN Nausea #10 tabs 04/19/24 Unknown Rx tablet ondansetron 4 mg disintegrating 4 mg PO Q8H PRN PRN Nausea #10 tabs 04/19/24 Unknown Rx tablet Allergy/AdvReac Type Severity Reaction Status Date / Time doxycycline (From Vibramycin) Allergy Rash Verified 04/19/24 14:55 fenofibrate (From Tricor) Allergy Unknown Verified 04/19/24 14:55 lisinopril Allergy Other Verified 04/19/24 14:55 Social History Smoking Status: Never smoker EXAM Physical Exam Const Vital Signs: 04/19/24 14:53 04/19/24 16:53 04/19/24 18:00 Temperature 97.6 F L Temperature Source Oral Pulse Rate 69 72 Respiratory Rate 16 16 Blood Pressure 169/79 H 128/71 H 129/67 H Blood Pressure Mean 109 90 87 Pulse Ox 99 97 98 Oxygen Delivery Method Room Air Room Air Room Air 04/19/24 18:45 Temperature 97.6 F L Temperature Source Pulse Rate 72 Respiratory Rate 16 Blood Pressure 129/67 H Blood Pressure Mean 87 Pulse Ox 98 Oxygen Delivery Method MDM MDM MDM Narrative Medical decision making narrative: HISTORY OF PRESENT ILLNESS: 78-year-old male presents with nausea vomiting. Notes he vomited after eating food. Notes he has been ongoing for the past several weeks worse over the last week. Notes she is lost approximately 10 pounds. Complains of diffuse weakness and also fatigue. He further states his last problems this morning. Notes pain is worse with eating. Has not seen GI in the past. Still has gallbladder and appendix. Notes history of colon cancer status post 1 foot of colon removed. REVIEW OF SYSTEMS: Pertinent positives: Nausea and vomiting, diffuse weakness, fatigue Pertinent negatives: Chest pain, shortness breath, bleeding diathesis PHYSICAL EXAM: Nursing triage notes reviewed, Vital signs reviewed Constitutional: please see mdm HENT: MMM Eyes: Pupils equal round and reactive to light, Extraocular muscles intact Neck: No stridor, no JVD, full neck ROM Lungs: Clear to auscultation, No wheezing or rales. No increased work of breathing, no conversational dyspnea, no accessory muscle use, no nasal flaring. No respiratory distress noted Heart: Regular rate and rhythm, No murmurs, No rubs and No gallops, 2+ distal pulses (radial, femoral, posterior tibial) in all extremities Abdomen: Soft, there is no tenderness, rigidity, rebound or guarding, no obvious peritoneal signs, no palpable pulsatile abdominal masses, no auscultated abdominal bruit : No CVAT Extremities: No edema Neuro: Alert and oriented x3, neuro exam at baseline, cranial nerves II through XII are intact. No pain with extraocular muscle movement. There is negative test of skew. 5 of 5 strength in upper and lower extremities in flexion extension. Intact sensation to light touch in upper and lower extremity dermatomes. No truncal or extremity ataxia. No dysdiadochokinesia. Normal gait. 2+ reflexes in upper and lower extremities. No meningeal signs. Negative Babinski. NIH of 0. Skin: No rash or lesions noted MEDICAL DECISION MAKING: Chief Complaint: Nausea vomiting, fatigue and diffuse weakness External records reviewed: Meds reviewed: On Xarelto Factors affecting care:atrial fibrillation on Xarelto, colon ca s/p resection Social determinants of health: none History obtained from others: Consults: none [facility] Narrative: The patient was initially hemodynamically stable, afebrile and [id number] abdominal exam was overall benign. I considered the following differential diagnosis: Dehydration, electrolyte disturbance, obstruction, perforation, mass, pancreatitis, hepatobiliary obstruction. I obtained a broad lab and imaging workup to further elucidate etiology of the patient's complaints ALL IMAGES (IF OBTAINED) HAVE BEEN PERSONALLY REVIEWED AND INTERPRETED BY MYSELF. EKG with normal sinus rhythm, prolonged ND 212, first-degree block, left ax deviation, no STEMI, no arrhythmia CT scan abdomen pelvis with IV contrast showed concern for obstructing mass in the small bowel, no evidence of perforation. Also there is concern for hepatic lesions concerning for metastatic cancer. CBC without leukocytosis, noted mild anemia but no thrombocytopenia There was mild hyponatremia with a sodium 133 otherwise no severe electrolyte maladies, no signs of metabolic acidosis or endorgan hypoperfusion LFTs show no evidence of hepatobiliary pathology. Lipase is wnl indicating no pancreatic inflammation. Urinalysis shows no evidence of urinary inflammation suggestive of UTI The synthesis of the patient's history, physical exam, labs, and images there is no acute life-limiting etiology that can be found. Patient's CT scan was concerning for cancer. I made the determination to admit versus discharge patient based on his clinical status. Specifically his ability to tolerate p.o. He is able tolerate p.o. here after IV Zofran. Discussed admitting the patient however patient refused stating he prefer to be discharged with close outpatient follow-up. Fast pass oncology referral was placed. Zofran was given as a prescription. Strict return precautions were discussed. The patient and/or family, caregivers express understanding. The patient and/or family, caregivers agrees with the plan. Shared decision making: I will have a discussion with the patient and or visitors regarding risk/benefits of further testing or admission. They will be made aware of of the risk/benefits inherent in this decision they will be given the opportunity to voice understanding. Total critical care time today provided was at least 0 minutes. This excludes separately billable procedures. Critical care time (if documented) is secondary to the patient having high probability of clinically significant/life threatening deterioration in the patient's condition which required my urgent intervention. Impression: 1. Nausea & Vomiting 2. History of colon cancer 3. Abdominal mass Dispo: Discharge home This note was generated with [employer] dictation software. It may contain incorrect words, spelling, and punctuation that were not noted in review of the chart prior to signing. Lab Data Labs: Laboratory Results - last 24 hr 04/19/24 04/19/24 16:12 17:43 WBC 7.0 RBC 4.31 L Hgb 11.2 L Hct 36.5 L MCV 84.7 MCH 26.0 L MCHC 30.7 L RDW Std Deviation 43.7 RDW Coeff of Rosario 14.1 Plt Count 217 MPV 9.1 Immature Gran % (Auto) 0.300 Neut % (Auto) 75.6 H Lymph % (Auto) 12.9 L [place] % (Auto) 9.2 Eos % (Auto) 1.6 Baso % (Auto) 0.4 Absolute Neuts (auto) 5.3 Absolute Lymphs (auto) 0.90 Nucleated RBC % 0 Sodium 133 L Potassium 4.2 Chloride 100 Carbon Dioxide 28.0 Anion Gap 5 BUN 14 Creatinine 0.68 L Estim Creat Clear Calc 97.16 Est GFR (MDRD) Af Amer 144 Est GFR (MDRD) Non-Af 119 BUN/Creatinine Ratio 20.5 H Glucose 126 H Calcium 9.4 Total Bilirubin 0.50 AST 37 ALT 21 Alkaline Phosphatase 151 H Total Protein 7.3 Albumin 3.3 Globulin 4.0 Albumin/Globulin Ratio 0.8 L Lipase 29 Urine Color Yellow Urine Clarity Clear Urine pH 7.0 Ur Specific [place] 1.010 Urine Protein 15 H Urine Glucose (UA) Normal Urine Ketones 5 H Urine Occult Blood Negative Urine Nitrite Negative Urine Bilirubin Negative Urine Urobilinogen Normal Ur Leukocyte Esterase 100 H Urine RBC 0 SEEN Urine WBC 0-5 SEEN Ur Squamous Epith Cells 0 SEEN Urine Bacteria 1+ Urine Mucus 0 SEEN Radiography Diagnostic Testing: Clinical Impression(s) from Imaging Studies Abdomen/Pelvis CT 04/19/24 15:50 IMPRESSION: Suspect obstructing mass of the small bowel at the level of the ligament of Treitz with moderate dilatation of the duodenum and stomach without evidence of perforation. Correlation with endoscopy would be useful. Suspect hepatic metastases including a 12 cm mass in the posterior segment of the right lobe of the liver. Electronically Signed: Lucius Ho MD at 18:05 EST , Discharge Plan Triage Chief Complaint: Nausea/Vomiting ED Provider: Herber Logan Dx/Rx/DC Orders Instructions: ED Tumor, Uncertain Cause Prescriptions: New ondansetron 4 mg tablet,disintegrating 4 mg PO Q8H PRN PRN (Reason: Nausea) Qty: 10 0RF ondansetron 4 mg tablet,disintegrating 4 mg PO Q8H PRN PRN (Reason: Nausea) Qty: 10 0RF No Action flecainide 150 MG tablet 150 mg PO BID Xarelto 20 MG tablet 20 mg PO QHS Other Ambulatory Orders: Fast Pass: Oncology Referral [facility] (Routine) Facility: [facility] - Location: [facility] Ordered By: Dr. Herber Logan [facility] [Primary [facility] Provider] - Print Language: Citizen Of [place] Disposition Disposition: Home, Self Care
--- NOTE | 2024-04-19 15:10 | EKG12_ITS ---
Test Reason : GENERAL Blood Pressure : */* mmHG Vent. Rate : 64 BPM Atrial Rate : 64 BPM P-R Int : 212 ms QRS Dur : 136 ms QT Int : 474 ms P-R-T Axes : 53 -35 9 degrees QTcB Int : 489 ms Sinus rhythm with 1st degree A-V block Left axis deviation Non-specific intra-ventricular conduction block Abnormal ECG Confirmed by IMANI SEAMAN, CRISTOBAL ([id number]), makeup editor DAVID PATEL ([id number]) on 04/22/2024 6:45:31 AM Referred By: Confirmed By: CRISTOBAL DIALLO MD
--- NOTE | 2024-04-19 15:25 | ED.RN ---
Dr. Logan bedside
--- NOTE | 2024-04-19 15:50 | CT_ITS ---
STUDY: CT ABDOMEN AND PELVIS WITH CONTRAST REASON FOR EXAM: Male, 78 years old. abdominal pain RADIATION DOSAGE (If Supplied By Facility): CTDIvol = ( 19.46 ) mGy, DLP = ( 2025.66 ) mGycm TECHNIQUE: Transaxial images were obtained from the dome of the diaphragm to the symphysis pubis without oral contrast. IV 100mL Isovue-300 was administered. Sagittal and coronal images were reconstructed. Individualized dose optimization techniques were used for this CT. COMPARISON: None. FINDINGS: The visualized lung bases are unremarkable. The visualized portions of the heart are within normal limits. Elevated right hemidiaphragm. Multiple lesions of decreased attenuation within the liver consistent with metastatic disease. The largest lesion measures 12 cm in the posterior segment of the right lobe of the liver. Normal gallbladder and extrahepatic biliary system. Normal spleen. Normal pancreas. Normal bilateral adrenal glands. Normal right kidney. Normal left kidney. Moderate gastric distention. Moderately dilated fluid-filled duodenum with irregular wall thickening at the level of the ligament of Treitz with multiple diverticula including a 6 cm diverticulum worrisome for obstructing mass. Suture line at the rectosigmoid junction. The appendix is visualized and appears normal. Normal abdominal aorta. Normal inferior vena cava. Normal retroperitoneum. Normal urinary bladder. There are prostatic calcifications. Normal abdominal wall. There are diffuse degenerative changes of the visualized lumbar spine. CT/Abdomen/Pelvis W IV Cont ONLY IMPRESSION: Suspect obstructing mass of the small bowel at the level of the ligament of Treitz with moderate dilatation of the duodenum and stomach without evidence of perforation. Correlation with endoscopy would be useful. Suspect hepatic metastases including a 12 cm mass in the posterior segment of the right lobe of the liver. Electronically Signed: Lucius Ho MD at 18:05 EST ,
[2024-04-19 16:21] LABS: Absolute Neutrophil Count 5.3 X10^3/uL (2.0-7.7); Basophil# 0.03 X10^3/uL; Basophil% 0.4 % (0-1); Eosinophil# 0.11 X10^3/uL; Eosinophils% 1.6 % (0-5); Hematocrit 36.5 % (40-54); Hemoglobin 11.2 g/dL (13.0-16.5); Lymphocyte % 12.9 % (19-41); Mean Corp Hgb Conc 30.7 g/dL (32-36); Mean Corpuscular Volume 84.7 fL (80-94); Mean Platelet Vol. 9.1 fl (6.2-12.0); Monocyte# 0.64 X10^3/uL; Monocyte% 9.2 % (0-10); NRBC Flagged by Analyzer 0 % (0-5); Neutrophil # 5.25 X10^3/uL (2.7-7.7); Neutrophil % 75.6 % (47-70); Platelet Count 217 K/mm3 (150-450); RBC Distribution Width CV 14.1 % (11.6-14.6); RBC Distribution Width SD 43.7 fl (35.1-43.9); Red Blood Count 4.31 M/mm3 (4.6-6.2)
[2024-04-19 16:43] LABS: ALB/GLOB Ratio 0.8 RATIO (0.9-2.4); AST(SGOT) 37 U/L (15-37); Alanine Aminotransfer ALT/SGPT 21 U/L (16-61); Albumin, Serum 3.3 g/dL (3.2-5.0); Alkaline Phosphatase 151 U/L (45-117); Anion Gap 5 (5-15); BUN 14 mg/dL (7-18); BUN/Creat Ratio 20.5 RATIO (10-20); Calcium,Total 9.4 mg/dL (8.5-10.1); Chloride 100 mmol/L (98-107); Creatinine, Serum 0.68 mg/dL (0.70-1.30); EST Glomerular Filtration Rate 119 mL/min (>60); Est Glom Filt Rate - Afr Amer 144 mL/min (>60); Estimated Creatinine Clearance 97.16 ml/min; Glucose 126 mg/dL (74-106); Lipase 29 U/L (13-75); Potassium 4.2 mmol/L (3.5-5.1); Protein, Total 7.3 g/dL (6.4-8.2); Sodium Level 133 mmol/L (136-145)
[2024-04-19] MEDS: Ondansetron 4 MG/2 ML Vial IV (16:49)
[2024-04-19] MEDS: 0.9% Normal Saline (1000mL) 1,000 ML 999 ML IV (16:49)
[2024-04-19 16:53] VITALS: BP 128/71; PULSE 72; RESP 16; O2SAT 97
[2024-04-19 17:49] LABS: Mucous, Urine 0 SEEN /hpf (<or=2+); Red Blood Cells-Urine 0 SEEN /hpf (0-5); Squamous Epithelial Cells - UA 0 SEEN /hpf (0-5)
[2024-04-19 17:52] LABS: Color, Urine Yellow (Yellow); Glucose, Dipstick Normal (Normal); Ketone-Dipstick 5 mg/dl (Negative); Leukocyte Esterase-Dipstick 100 /ul (Negative); Nitrite-Dipstick Negative (Negative); Occult Blood-Urine Negative /ul (Negative); Protein-Dipstick 15 mg/dl (Negative); Urine Bilirubin Dipstick Negative (Negative); Urine Clarity Clear (Clear); Urine Urobilinogen Normal (Normal)
[2024-04-19 18:00] VITALS: BP 129/67; O2SAT 98
[2024-04-19 18:06] LABS: Bacteria 1+ /hpf (None Seen); White Blood Cells 0-5 SEEN /hpf (0-5)
--- NOTE | 2024-04-19 18:13 | ED.RN ---
Patient ambulated to bathroom and given cup of water for PO challenge.
[2024-04-19 18:45] VITALS: BP 129/67; PULSE 72; RESP 16; TEMP 36.4; O2SAT 98
[2024-04-19] MEDS: Ondansetron ODT 4 MG Tablet PO (19:28)
== END 2024-04-19 19:29 | disposition home or self-care (01) ==
PROVIDERS: Emergency Provider Emergency Medicine; Visit Provider Emergency Medicine
DX: R11.2 Nausea with vomiting, unspecified (principal); G20.C Parkinsonism, unspecified; R19.00 Intra-abdominal and pelvic swelling, mass and lump, unspecified site; Z79.01 Long term (current) use of anticoagulants
CPT/HCPCS: 74177; 80053; 81001; 83690; 85025; 93005; 96361; 96374; 96376; 99283; Q9967; A4216; J2405

== ENCOUNTER 2024-04-27 13:23 | Emergency (ER) | payer MEDICARE, OTHER, SELFPAY ==
[2024-04-27 13:24] VITALS: BP 130/81; PULSE 66; RESP 16; TEMP 36.9; O2SAT 99
[2024-04-27] MEDS: 0.9% Normal Saline (1000mL) 1,000 ML 999 ML IV (14:19)
[2024-04-27 14:26] LABS: Absolute Lymphocyte Count 0.76 X10^3/uL (0.83-4.51); Absolute Neutrophil Count 6.5 X10^3/uL (2.0-7.7); Basophil# 0.02 X10^3/uL; Basophil% 0.2 % (0-1); Eosinophil# 0.04 X10^3/uL; Eosinophils% 0.5 % (0-5); Hematocrit 38.6 % (40-54); Lymphocyte # 0.76 X10^3/ul (0.83-4.51); Lymphocyte % 9.4 % (19-41); Mean Corp Hgb Conc 31.1 g/dL (32-36); Mean Corpuscular Hgb 25.8 pg (27.0-32.0); Mean Platelet Vol. 9.3 fl (6.2-12.0); Monocyte# 0.73 X10^3/uL; NRBC Flagged by Analyzer 0 % (0-5); Neutrophil # 6.51 X10^3/uL (2.7-7.7); Neutrophil % 80.5 % (47-70); Platelet Count 231 K/mm3 (150-450); RBC Distribution Width CV 14.5 % (11.6-14.6); RBC Distribution Width SD 43.3 fl (35.1-43.9); Red Blood Count 4.65 M/mm3 (4.6-6.2); White Blood Count 8.1 K/mm3 (4.4-11.0)
[2024-04-27 14:45] LABS: ALB/GLOB Ratio 0.8 RATIO (0.9-2.4); AST(SGOT) 40 U/L (15-37); Alanine Aminotransfer ALT/SGPT 27 U/L (16-61); Albumin, Serum 3.5 g/dL (3.2-5.0); Alkaline Phosphatase 161 U/L (45-117); Anion Gap 9 (5-15); BUN 16 mg/dL (7-18); BUN/Creat Ratio 19.9 RATIO (10-20); Calcium,Total 9.4 mg/dL (8.5-10.1); Chloride 97 mmol/L (98-107); EST Glomerular Filtration Rate 99 mL/min (>60); Est Glom Filt Rate - Afr Amer 120 mL/min (>60); Globulin 4.2 g/dL (2.2-4.2); Glucose 149 mg/dL (74-106); Lipase 25 U/L (13-75); Potassium 3.9 mmol/L (3.5-5.1); Protein, Total 7.7 g/dL (6.4-8.2); Sodium Level 132 mmol/L (136-145)
--- NOTE | 2024-04-27 15:22 | EDS_ITS ---
HPI HPI - GI History of Present Illness Chief Complaint: Abd Pain Informant: patient and family Narrative Narrative: 78-year-old male returns to the ER, he was here about 1 week ago, because he cannot keep anything down. With eating or drinking anything other than a very small amount, he vomits it up. He is having no bowel movements. He denies having any abdominal pain. He is losing weight. A week ago he had a CT that showed suspicion for intra-abdominal cancer and since then he followed up with oncology and he is due for a PET scan next week, still in diagnostic phases. PFSH PFS Medical History Colonic volvulus Colonic mass Afib Neuropathy Parkinsons disease Home Medications ?Medication ?Instructions ?Recorded ?Last Taken ?Type flecainide 150 mg tablet 150 mg PO BID 10/26/17 Unknown History rivaroxaban 20 mg tablet (Xarelto) 20 mg PO QHS 10/26/17 Unknown History ondansetron 4 mg disintegrating 4 mg PO Q8H PRN PRN Nausea #10 tabs 04/19/24 Unknown Rx tablet carbidopa 25 mg-levodopa 100 mg 1 tab PO TID 04/22/24 Unknown History tablet gabapentin 400 mg capsule 400 mg PO TID 04/22/24 Unknown History melatonin 3 mg capsule 3 mg PO HS PRN 04/22/24 Unknown History propranolol 60 mg capsule,24 60 mg PO QDAY 04/22/24 Unknown History hr,extended release ropinirole 1 mg tablet 1 mg PO QHS 04/22/24 Unknown History Allergy/AdvReac Type Severity Reaction Status Date / Time doxycycline (From Vibramycin) Allergy Rash Verified 04/27/24 13:27 fenofibrate (From Tricor) Allergy Unknown Verified 04/27/24 13:27 lisinopril Allergy Other Verified 04/27/24 13:27 Family History (Updated 04/22/24 @ 13:32 by Carolina Guadalupe) Mother Colonic volvulus Surgical History History of partial colectomy History of cardiac ablation for atrial fibrillation Social History household members: spouse Smoking Status: Never smoker alcohol intake: never substance use type: does not use what type of physical activity do you participate in: walking frequency: 5-6 times per week dennys/restoration: Catholic seatbelt use: always do you feel safe at home: Yes ROS ROS ED Constitutional Constitutional ED: Reports malaise; Denies chills or fever(s) Eyes Eyes: Denies change in vision or diplopia ENT ENT ED: Denies rhinorrhea or sore throat Cardiovascular Cardiovascular: Denies chest pain or palpitations Respiratory/Chest Respiratory/Chest: Denies cough or dyspnea Gastrointestinal Gastrointestinal: Reports nausea and vomiting; Denies abdominal pain, diarrhea or hematemesis Genitourinary Genitourinary ED: Denies dysuria or hematuria Musculoskeletal Musculoskeletal: Denies back pain or neck pain Integumentary Denies abscess or rash Neurologic Neurologic: Denies headache(s), paresthesias or weakness Psychiatric Psychiatric: Denies anxiety or suicidal thoughts EXAM Physical Exam Const Vital Signs: 04/27/24 13:24 04/27/24 16:10 04/27/24 19:21 Temperature 98.4 F Temperature Source Oral Pulse Rate 66 66 63 Respiratory Rate 16 16 16 Blood Pressure 130/81 H 109/87 H 122/58 H Blood Pressure Mean 97 94 79 Pulse Ox 99 97 95 Oxygen Delivery Method Room Air Room Air Room Air 04/27/24 21:00 04/27/24 22:24 Temperature 98.0 F Temperature Source Pulse Rate 68 67 Respiratory Rate 16 16 Blood Pressure 128/62 H 128/60 H Blood Pressure Mean 84 82 Pulse Ox 96 96 Oxygen Delivery Method Room Air Positive well nourished and well developed General Appearance ED: well developed and NAD HEENT Reports moist mucous membranes normocephalic and atraumatic Eyes PERRL and EOMs intact bilaterally Neck full ROM and supple Resp normal respiratory effort and clear to auscultation bilaterally Cardio regular rate, regular rhythm and no murmurs GI non-tender and non-distended Auscultation: normoactive bowel sounds Palpation: soft Back/Spine no CVA tenderness General Back: other FROM Extremity normal to inspection General Extremety ED: Negative for edema, pulses abnormal or tenderness General Extremity: Negative for edema or pulses abnormal Neuro oriented x3, CN's II-XII intact bilaterally and no sensory deficits noted Sensorium / Orientation: awake and alert Motor Exam: strength 5/5 throughout Skin no rashes or lesions noted and no wounds MDM MDM MDM Narrative Medical decision making narrative: Labs are obtained and we gave him IV fluids in the meantime. I reviewed the CT results from last week, he appears to have a mass that appears to be blocking his small bowel. His symptoms are no different. For this reason I do not think he needs new imaging. It appears that the ED physician 1 week ago tried to admit him but he did not want to be admitted. I discussed all this and his CT scan with Dr. Burks with surgery. She reviewed it, and states given the location of this mass and obstruction, he needs a J-tube which we do not place at this facility. The patient states he wants to do his care locally and does not want to be transferred to another hospital. I spent an extended period of time discussing the logic here and what he needs in order to be able to get nutrients and fluids past the mass. He is here on a Monday. Patient tells me now that in 1 week he has an appointment with Dr. Morales for surgery. He does not know if it is for a biopsy or if it is for mass debulking, he has no idea what is involved just surgery. I discussed with Dr. Burks. She was able to look up some notes and states that on Monday this coming week he is scheduled with a consultation with Dr. Morales and then endoscopy on , but as she is looking at the scan it is very likely that the endoscopy would then be canceled because she feels they are unlikely to be able to do anything with that based on what she is seeing. She recommends the J-tube route for now and then continuing with the malignancy workup. I discussed with Mrs. Armstrong with oncology, who is covering for Dr. Nur, states that they often use Dr. Schwartz at [facility] when they have these types of issues. Patient was amenable to being transferred to [facility] so I discussed with Dr. Higginbotham there who accepted the patient. I am holding off on giving the patient an NG tube since he is asymptomatic right now if he is not eating or drinking anything. Lab Data Attestation: I reviewed the patient's lab results. Labs: Laboratory Results - last 24 hr 04/27/24 14:10 WBC 8.1 RBC 4.65 Hgb 12.0 L Hct 38.6 L MCV 83.0 MCH 25.8 L MCHC 31.1 L RDW Std Deviation 43.3 RDW Coeff of Rosario 14.5 Plt Count 231 MPV 9.3 Immature Gran % (Auto) 0.400 Neut % (Auto) 80.5 H Lymph % (Auto) 9.4 L [place] % (Auto) 9.0 Eos % (Auto) 0.5 Baso % (Auto) 0.2 Absolute Neuts (auto) 6.5 Absolute Lymphs (auto) 0.76 L Nucleated RBC % 0 Sodium 132 L Potassium 3.9 Chloride 97 L Carbon Dioxide 26.0 Anion Gap 9 BUN 16 Creatinine 0.80 Est GFR (MDRD) Af Amer 120 Est GFR (MDRD) Non-Af 99 BUN/Creatinine Ratio 19.9 Glucose 149 H Calcium 9.4 Total Bilirubin 0.60 AST 40 H ALT 27 Alkaline Phosphatase 161 H Total Protein 7.7 Albumin 3.5 Globulin 4.2 Albumin/Globulin Ratio 0.8 L Lipase 25 Management Discussion w/another healthcare provider: Blog Writer (surgery, oncology) Discharge Plan Triage Chief Complaint: Abd Pain Other Complaint: Fall ED Provider: Cal Zambrano Dx/Rx/DC Orders Clinical Impression: Complete small bowel obstruction, Intra-abdominal malignant neoplasm Prescriptions: No Action propranolol 60 mg capsule,extended release 24 hr 60 mg PO QDAY ropinirole 1 mg tablet 1 mg PO QHS Rx Instructions: administer 1-3 hours before bedtime melatonin 3 mg capsule 3 mg PO HS PRN gabapentin 400 mg capsule 400 mg PO TID carbidopa-levodopa 25-100 mg tablet 1 tab PO TID flecainide 150 MG tablet 150 mg PO BID Xarelto 20 MG tablet 20 mg PO QHS ondansetron 4 mg tablet,disintegrating 4 mg PO Q8H PRN PRN (Reason: Nausea) Qty: 10 0RF [facility] [[facility] Provider] - Print Language: Yi Disposition Disposition: Acute Care Hospital Discharge Location: [facility] Discharge Date/Time: 04/27/24 22:32
[2024-04-27 16:10] VITALS: BP 109/87; PULSE 66; RESP 16; O2SAT 97
[2024-04-27 16:11] VITALS: BMI 28.7
--- NOTE | 2024-04-27 18:02 | NURSING ---
ACCEPTED AT [facility] AT [address] SETH, WAITING BED
--- NOTE | 2024-04-27 19:14 | ED.RN ---
CALLED [facility] @ 1850, [employer] ETA IS 90 MIN-2 HOURS ([phone]).
[2024-04-27 19:21] VITALS: BP 122/58; PULSE 63; RESP 16; O2SAT 95
[2024-04-27 21:00] VITALS: BP 128/62; PULSE 68; RESP 16; O2SAT 96
--- NOTE | 2024-04-27 21:16 | ED.RN ---
[facility], spoke to [facility]. updated eta is 60-90 min ([phone]).
[2024-04-27 22:24] VITALS: BP 128/60; PULSE 67; RESP 16; TEMP 36.7; O2SAT 96
== END 2024-04-27 22:32 | disposition short-term general hospital (02) ==
PROVIDERS: Emergency Provider Emergency Medicine; Visit Provider Emergency Medicine
DX: K56.601 Complete intestinal obstruction, unspecified as to cause (principal); C76.2 Malignant neoplasm of abdomen
CPT/HCPCS: 80053; 83690; 85025; 96360; 96361; 99284; A4216

== ENCOUNTER → 2024-05-13 | Outpatient (REF) | payer MEDICARE, OTHER, SELFPAY ==
[2024-05-13 10:56] LABS: Absolute Lymphocyte Count 0.44 X10^3/uL (0.83-4.51); Absolute Neutrophil Count 6.5 X10^3/uL (2.0-7.7); Basophil# 0.01 X10^3/uL; Basophil% 0.1 % (0-1); Eosinophil# 0.02 X10^3/uL; Eosinophils% 0.3 % (0-5); Hematocrit 31.6 % (40-54); Hemoglobin 9.7 g/dL (13.0-16.5); Lymphocyte # 0.44 X10^3/ul (0.83-4.51); Lymphocyte % 5.9 % (19-41); Mean Corp Hgb Conc 30.7 g/dL (32-36); Mean Corpuscular Hgb 25.9 pg (27.0-32.0); Mean Corpuscular Volume 84.3 fL (80-94); Mean Platelet Vol. 11.8 fl (6.2-12.0); Monocyte# 0.39 X10^3/uL; Monocyte% 5.2 % (0-10); NRBC Flagged by Analyzer 0 % (0-5); Neutrophil # 6.54 X10^3/uL (2.7-7.7); Neutrophil % 87.7 % (47-70); POSITIVE DIFFERENTIAL YES; Platelet Count 191 K/mm3 (150-450); RBC Distribution Width CV 15.7 % (11.6-14.6); RBC Distribution Width SD 47.8 fl (35.1-43.9); Red Blood Count 3.75 M/mm3 (4.6-6.2); White Blood Count 7.5 K/mm3 (4.4-11.0)
[2024-05-13 11:16] LABS: ALB/GLOB Ratio 0.5 RATIO (0.9-2.4); AST(SGOT) 50 U/L (15-37); Alanine Aminotransfer ALT/SGPT 65 U/L (16-61); Alkaline Phosphatase 201 U/L (45-117); Anion Gap 6 (5-15); BUN 28 mg/dL (7-18); BUN/Creat Ratio 42.2 RATIO (10-20); Calcium,Total 8.1 mg/dL (8.5-10.1); Chloride 99 mmol/L (98-107); Creatinine, Serum 0.66 mg/dL (0.70-1.30); EST Glomerular Filtration Rate 124 mL/min (>60); Est Glom Filt Rate - Afr Amer 150 mL/min (>60); Globulin 4.2 g/dL (2.2-4.2); Glucose 135 mg/dL (74-106); Potassium 3.7 mmol/L (3.5-5.1); Protein, Total 6.2 g/dL (6.4-8.2); Sodium Level 133 mmol/L (136-145)
== END ==
LOC: OLS.SW 05:00
PROVIDERS: Visit Provider Internal Medicine
DX: Z02.2 Encounter for examination for admission to residential institution (principal); E11.65 Type 2 diabetes mellitus with hyperglycemia; C17.9 Malignant neoplasm of small intestine, unspecified
CPT/HCPCS: 36415; 80053; 82140; 85025